=== PATIENT | female | born 1980 | race Caucasian/White ===

== ENCOUNTER 2016-12-06 23:12 | Emergency (ER) | payer OTHER ==
[~2016-12-06] VITALS: Ht 162.6 cm; Wt 65.9 kg
--- NOTE | 2016-12-06 23:13 | ED.REPORT ---
HPI-General Illness Date of Service December 06, 2016 ED Provider: Julio Perez MD 36 year old female presents to the ER via EMS accompanied by a male client technologies analyst due to accidental IV oxycodone overdose 30 minutes prior to arrival. Her friend called EMS when patient lost consciousness and became unresponsive. Patient regained consciousness after 2mg of nasal Narcan administered in the field. History is limited due to patient's intoxication. Nursing Notes Stated Complaint: OVERDOSE Nursing Notes Reviewed: Yes Allergies: Coded Allergies: No Known Allergies (Unverified , 12/06/16) General Time Seen by MD: 23:12 Chief Complaint Other (Oxycodone Overdose) Hx Obtained From: Patient Arrived By: Ambulance Sudden in Onset?: Yes Onset Occurred: 16 - 30 minutes ago (30minutes) Caused by: Accidental Similar Sx Previous: No Past Medical History Past Medical History IV drug use - Heroin, oxycodone Social History Drug Use: IV drugs Other Social History: Good social support Review of Systems ROS limited by patient's intoxication. Full Review of Systems Neurologic: Reports: Syncope Complete sys rev & neg: except as marked. Physical Exam Vital Signs Vital Signs Date Time Temp Pulse Resp B/P Pulse Ox O2 Delivery O2 Flow Rate FiO2 12/06/16 23:16 36.6 93 13 151/104 100 Room Air Initial VS: Reviewed Head / Eyes: Atraumatic, Normocephalic Neck: Supple, Non-tender, Full range of motion Respiratory: Breath sounds normal, Clear to auscultation, No respiratory distress Cardiovascular: Regular rate & rhythm, Heart sounds normal, Intact distal pulses Abdomen / GI: Soft, Non-tender, No guarding, No rebound, No distention Extremities: Vascular intact, Neuro intact, No swelling, No tenderness Skin: Warm, Dry, No cyanosis General/Constitutional: Well developed Alertness: Positive: Responds to verb stimuli Behavior: Positive: Appears intoxicated Appearance / Presentation: Positive: Intoxicated Responds to questions with monosyllabic answers. Skin: Warm, Dry, Intact Rash / Lesion Notes: Signs of IV DA multiple injection sites Goose flesh Interpretation & Diagnostics Lab Results Interpretation Result Diagram: 12/07/16 0042 12/07/16 0042 Test 12/07/16 00:42 12/07/16 00:53 12/07/16 02:00 White Blood Count 11.7th/mm3 (3.8-10.1) Red Blood Count 4.87mil/mm3 (3.90-5.20) Hemoglobin 13.8g/dL (12.0-15.6) Hematocrit 41.6% (35.0-46.0) Mean Corpuscular Volume 85.4fL (81-100) Mean Corpuscular Hemoglobin 28.3pg (27.0-35.0) Mean Corpuscular Hemoglobin Concent 33.2% (32.0-37.0) Red Cell Distribution Width 15.3% (12.3-15.4) Platelet Count 256bil/L (150-400) Neutrophils (%) (Auto) 72.0% (40-74) Lymphocytes (%) (Auto) 16.5% (14-46) Monocytes (%) (Auto) 8.9% (4-12) Eosinophils (%) (Auto) 1.6% (0-5) Basophils (%) (Auto) 0.4% (0-3) Sodium Level 132mEq/L (134-144) Potassium Level 4.0mEq/L (3.5-5.2) Chloride Level 98mEq/L (97-108) Carbon Dioxide Level 23mmol/L (18-29) Blood Urea Nitrogen 13mg/dL (6-20) Creatinine 0.58mg/dL (0.57-1.00) Estimat Glomerular Filtration Rate 168mL/min (>59) Glucose Level 85mg/dL (60-99) Calcium Level 9.1mg/dL (8.5-10.1) Total Bilirubin 0.3mg/dL (0.0-1.2) Aspartate Amino Transf (AST/SGOT) 79U/L (0-50) Alanine Aminotransferase (ALT/SGPT) 95U/L (0-32) Alkaline Phosphatase 76U/L (25-150) Total Protein 7.6g/dL (6.4-8.4) Albumin 4.0g/dL (3.4-5.0) Alcohols 10mg/dL (0-10) Hold Martinez Top Tube Received (Received) Urine Color Yellow (YELLOW) Urine Appearance Clear (CLEAR,HAZY) Urine pH 6.0 (5.0-8.0) Urine Specific [place] 1.025 (1.003-1.035) Urine Protein Tracemg/dL (NEG,TRACE) Urine Glucose (UA) Negativemg/dL (NEGATIVE) Urine Ketones Negativemg/dL (NEGATIVE) Urine Occult Blood Negative (NEGATIVE) Urine Nitrite Negative (NEGATIVE) Urine Bilirubin Negative (NEGATIVE) Urine Urobilinogen Normalmg/dL (NORMAL) Urine Leukocyte Esterase Negative (NEGATIVE) Urine RBC 0-2/hpf (0-2) Urine WBC 0-5/hpf (0-5) Urine Epithelial Cells Few/hpf (NONE-MOD) Urine Crystals None seen (NONE SEEN) Urine Bacteria Few/hpf (NONE-FEW) Urine Hyaline Casts 5/20/lpf (NONE) Urine Granular Casts Rare (NONE SEEN) Urine Waxy Casts None seen (NONE SEEN) Urine Red Blood Cell Casts None seen (NONE SEEN) Urine White Blood Cell Casts None seen (NONE SEEN) Urine Mucus Present (None Seen) Urine Trichomonas None seen (NONE SEEN) Urine Yeast None (NONE SEEN) Urinalysis Comment None Urine Culture Reflexed Not indicated ECG Interpretation ECG Interpretation: Sinus rhythm, rate 91 Probable LVH Time: 23:21 Interpreted by: ED physician X-Ray Chest Interpretation Chest Xray Interpretation: Normal chest x-ray. View: Portable, 1 view Interpretation / Wet Read by: Wet read ED physician Re-Eval/Medical Decision Med Decision/Clinical Course 36-year-old female with a history of IV drug abuse presents after an actual overdose. She had had a period of sobriety but today injected oxycodone crushed up. She denies other drug use, but her drug screen is positive for methamphetamine. Suction not positive for oxycodone, but she is probably not had time enough to excrete oxycodone or urine, she just barely injected before arrival here, and urine was obtained immediately. She is improved after Narcan and observation here for more than two hours. Discharged now in stable condition with continued sobriety encouraged. Source of Hx: Old records Time of Eval: 00:13 Patient Status: Condition improved Re-Evaluation/Progress Note: Patient is improved, alert and oriented. Time of Eval: 01:15 Re-Evaluation/Progress Note: Discussed lab and imaging results and plan to discharge. Patient is amenable to the plan. Return precautions given. All other questions addressed. Counseled Regarding: Diagnosis, Lab results, Need for follow-up, When/why to return to ED Discharge & Departure Primary Impression: Opiate overdose Additional Impression: Substance abuse Disposition: Home Discharge Condition All VS Reviewed: Yes Condition: Improved Additional Instructions: Stop doing intravenous drugs. Seriously. Follow-up with your doctor and with rehabilitation. Crit Care Except Billable Proc Time Spent: 30-74 minutes (33) Services Performed: Patient management by me, Time spent at bedside, Reviewing test results, Reviewing imaging, Discussing patient care, Documentation in record, Time with fam/surrogate Scribe Attestation Portions of this note were transcribed by Harsha Butelr. I, Dr. Perez, personally performed the history, physical exam and medical decision-making; I reviewed and confirmed the accuracy of the information in the transcribed note. Signed by: Ilya Guadarrama, 12/07/2016 at 01:23 Julio Perez MD December 06, 2016 23:13 HARSHA BUTLER December 06, 2016 23:19
[2016-12-06 23:16] VITALS: BP 151/104; PULSE 93; RESP 13; O2SAT 100
[2016-12-06] MEDS ORDERED: 0.9% Sodium Chloride 1,000 ML IV ONE (23:16)
[2016-12-07 00:45] LABS: BASOPHILS % (AUTO) 0.4 % (0-3); EOSINOPHILS % (AUTO) 1.6 % (0-5); MONOCYTES % (AUTO) 8.9 % (4-12); Mean Corpuscular Hemoglobin 28.3 pg (27.0-35.0); Mean Corpuscular Volume 85.4 fL (81-100); Platelet Count 256 bil/L (150-400)
[2016-12-07 02:27] LABS: APPEARANCE,URINE CLEAR (CLEAR,HAZY); COLOR,URINE YELLOW (YELLOW); OCCULT BLOOD,URINE NEGATIVE (NEGATIVE); UROBILINOGEN,URINE NORMAL (NORMAL)
--- NOTE | 2016-12-07 09:32 | DRSVH ---
PROCEDURE: X-RAY CHEST ONE VIEW, PORTABLE ([id number]) INDICATIONS: overdose TECHNIQUE: One view of the chest was acquired. COMPARISON: None. FINDINGS: Surgical changes and devices: None. Lungs and pleura: No pleural effusions or pneumothorax. Lungs are clear. Mediastinum: Mediastinal contours appear normal. Heart size is normal. Bones and chest wall: No suspicious bony lesions. Overlying soft tissues appear unremarkable. IMPRESSION: No acute disease Dictated by: Fredrick Bahena M.D. on 12/07/2016 at 9:30 Approved by: Fredrick Bahena M.D. on 12/07/2016 at 9:30
== END 2016-12-07 01:30 | disposition home or self-care (01) ==
LOC: SED 23:12
DX: T40.2X1A Poisoning by other opioids, accidental (unintentional), initial encounter (principal); F19.10 Other psychoactive substance abuse, uncomplicated; X58.XXXA Exposure to other specified factors, initial encounter; Y93.9 Activity, unspecified; Y92.9 Unspecified place or not applicable; Y99.8 Other external cause status
CPT/HCPCS: 36415; 71010; 80053; 81000; 81002; 81025; 85025; 93005; 99285; G0480